=== PATIENT | female | born 1995 | race Caucasian/White ===

== ENCOUNTER 2020-04-27 19:24 | Emergency (ER) | payer MEDICARE ==
[~2020-04-27] VITALS: Ht 162.6 cm; Wt 52.3 kg
[2020-04-27] MEDS ORDERED: BUSP10TA23 PO (19:37)
[2020-04-27] MEDS ORDERED: PROZ10 PO (19:37)
[2020-04-27] MEDS ORDERED: LIDOCAINE 1% 10 ML VIAL INJ ONE (23:00)
[2020-04-28] MEDS ORDERED: SULFAMETHOX/TRIMETH DS 800-160 MG/TABLET PO ONE (00:30)
[2020-04-28] MEDS ORDERED: CEPHALEXIN MONOHYDRATE 500 MG CAPSULE PO ONE (00:30)
[2020-04-28 01:00] VITALS: BP 101/62
== END 2020-04-28 01:30 | disposition home or self-care (01) ==
LOC: EMS 19:24
DX: L03.011 Cellulitis of right finger (principal); F41.9 Anxiety disorder, unspecified; F32.9 Major depressive disorder, single episode, unspecified; F15.90 Other stimulant use, unspecified, uncomplicated; F11.90 Opioid use, unspecified, uncomplicated
CPT/HCPCS: 10060; 99283; J3490